=== PATIENT | male | born 1990 | race African-American/Black ===

== ENCOUNTER 2018-09-06 11:31 | Emergency (ER) | payer MEDICAID, OTHER ==
[~2018-09-06] VITALS: Ht 182.9 cm; Wt 100.0 kg
[2018-09-06] MEDS ORDERED: SODIUM CHLORIDE 0.9% 1,000 ML IV ONE (12:22)
[2018-09-06] MEDS ORDERED: LEVETIRACETAM 1000MG/100ML 100 ML IV ONE (12:30)
[2018-09-06] MEDS ORDERED: NALOXONE HCL 1 MG/ML 2ML VIAL IV ONE (13:45)
[2018-09-06 15:33] LABS: BASOPHILS % 0.4 % (0.0-2.0); EOSINOPHILS % 1.3 % (0.0-5.0); HEMATOCRIT. 48.9 % (42.0-52.0); HEMOGLOBIN. 15.9 g/dL (14.0-18.0); LYMPHOCYTES % 37.2 % (20.0-50.0); MEAN CORPUSCULAR HEMOGLOBIN 27.7 pg (28.0-32.0); MEAN CORPUSCULAR VOLUME 85.1 fL (80.0-94.0); MEAN PLATELET VOLUME 7.4 fl (7.4-10.4); MONOCYTES % 13.1 % (2.0-8.0); PLATELET 347 x1000/uL (130-400); RED BLOOD CELL COUNT 5.75 mill/uL (4.7-6.1); RED CELL DISTRIBUTION WIDTH 15.2 % (11.6-14.6)
[2018-09-06 15:37] LABS: CHLORIDE 99 mEq/L (98-107); PARTIAL THROMBOPLASTIN TIME 28.9 sec (23.4-31.0); PROTHROMBIN TIME 10.5 sec (9.1-11.1)
[2018-09-06 15:44] LABS: ETHANOL BLOOD < 10 mg/dL
[2018-09-06 15:50] LABS: CREATINE KINASE 108 IU/L (39-308)
[2018-09-06] MEDS ORDERED: PHENYTOIN SODIUM EXTENDED 100MG CAPSULE PO ONE (17:15)
[2018-09-06 17:23] LABS: CLARITY URINE CLEAR (CLEAR); COLOR URINE YELLOW (YELLOW); KETONES URINE NEGATIVE (NEGATIVE); LEUKOCYTE ESTERASE URINE NEGATIVE (NEGATIVE); NITRITE URINE NEGATIVE (NEGATIVE); OCCULT BLOOD URINE NEGATIVE (NEGATIVE); PROTEIN URINE NEGATIVE (NEGATIVE); SPECIFIC GRAVITY URINE 1.011 (1.005-1.030); UROBILINOGEN URINE 0.2 E.U./dL (0.2-1.0)
[2018-09-06 17:40] LABS: *AMPHETAMINES SCREEN URINE NEGATIVE (NEGATIVE); *BARBITURATES SCREEN URINE NEGATIVE (NEGATIVE); *BENZODIAZEPINES SCREEN URINE NEGATIVE (NEGATIVE); *COCAINE SCREEN URINE NEGATIVE (NEGATIVE)
[2018-09-06 17:41] LABS: CANNABINOID URINE SCREEN NEGATIVE (NEGATIVE); METHADONE URINE SCREEN NEGATIVE (NEGATIVE); OPIATES URINE SCREEN NEGATIVE (NEGATIVE); PHENCYCLIDINE URINE SCREEN NEGATIVE (NEGATIVE)
[2018-09-06 18:39] VITALS: BP 132/75
== END 2018-09-06 18:41 | disposition home or self-care (01) ==
LOC: ER 13:37
DX: R51 Headache (principal); R89.2 Abnormal level of other drugs, medicaments and biological substances in specimens from other organs, systems and tissues; Z91.19 Patient's noncompliance with other medical treatment and regimen; F15.10 Other stimulant abuse, uncomplicated; F11.10 Opioid abuse, uncomplicated
CPT/HCPCS: 36415; 70450; 71045; 80053; 80185; 80305; 81003; 82550; 83735; 83880; 84484; 85025; 85610; 85730; 96365; 96375; 99285; G0482; J1953; J2310; J7030; Z7610

== ENCOUNTER 2018-09-14 14:02 | Emergency (ER) | payer MEDICAID ==
[~2018-09-14] VITALS: Ht 190.5 cm; Wt 120.0 kg
[2018-09-14] MEDS ORDERED: SODIUM CHLORIDE 0.9% 1,000 ML IV ONE (14:14)
[2018-09-14] MEDS ORDERED: LEVETIRACETAM 1000MG/100ML 100 ML IV ONE (14:15)
[2018-09-14 15:15] LABS: BASOPHILS % 0.7 % (0.0-2.0); EOSINOPHILS % 1.2 % (0.0-5.0); HEMATOCRIT. 41.1 % (42.0-52.0); HEMOGLOBIN. 13.7 g/dL (14.0-18.0); LYMPHOCYTES % 31.4 % (20.0-50.0); MEAN CORPUSCULAR HEMOGLOBIN 27.8 pg (28.0-32.0); MEAN CORPUSCULAR VOLUME 83.4 fL (80.0-94.0); MEAN PLATELET VOLUME 7.2 fl (7.4-10.4); MONOCYTES % 9.2 % (2.0-8.0); NEUTROPHILS % 57.5 % (40.0-76.0); PLATELET 325 x1000/uL (130-400); RED BLOOD CELL COUNT 4.93 mill/uL (4.7-6.1); RED CELL DISTRIBUTION WIDTH 14.8 % (11.6-14.6)
[2018-09-14 16:48] LABS: CHLORIDE 103 mEq/L (98-107)
[2018-09-14 16:49] LABS: ETHANOL BLOOD < 10 mg/dL
[2018-09-14] MEDS ORDERED: PHENYTOIN SODIUM EXTENDED 100MG CAPSULE PO ONE (18:00)
[2018-09-14 18:45] VITALS: BP 138/90
[2018-09-15] MEDS ORDERED: LEVE1000 MT (17:02)
== END 2018-09-14 18:52 | disposition home or self-care (01) ==
LOC: ER 14:12
DX: G40.909 Epilepsy, unspecified, not intractable, without status epilepticus (principal); Z91.19 Patient's noncompliance with other medical treatment and regimen
CPT/HCPCS: 36415; 70450; 80048; 80185; 82962; 85025; 96365; 99285; G0482; J1953; J7030; Z7610

== ENCOUNTER 2018-09-15 11:32 | Inpatient (IN) | payer MEDICAID ==
[~2018-09-15] VITALS: Ht 185.4 cm; Wt 92.7 kg
[2018-09-15] MEDS ORDERED: SODIUM CHLORIDE 0.9% 1,000 ML IV ONE (12:02)
[2018-09-15] MEDS ORDERED: LEVETIRACETAM 1000MG/100ML 100 ML IV ONE (12:15)
[2018-09-15 12:59] LABS: BASOPHILS % 0.6 % (0.0-2.0); HEMATOCRIT. 41.6 % (42.0-52.0); HEMOGLOBIN. 13.8 g/dL (14.0-18.0); MEAN CORPUSCULAR HEMOGLOBIN 27.9 pg (28.0-32.0); MEAN CORPUSCULAR VOLUME 84.1 fL (80.0-94.0); MEAN PLATELET VOLUME 7.1 fl (7.4-10.4); MONOCYTES % 8.9 % (2.0-8.0); NEUTROPHILS % 60.5 % (40.0-76.0); PLATELET 336 x1000/uL (130-400); RED BLOOD CELL COUNT 4.95 mill/uL (4.7-6.1); RED CELL DISTRIBUTION WIDTH 14.6 % (11.6-14.6)
[2018-09-15] MEDS ORDERED: DIVALPROEX SODIUM 250MG ER TABLET PO ONE (13:15)
[2018-09-15 13:16] LABS: CHLORIDE 104 mEq/L (98-107)
[2018-09-15 13:17] LABS: CREATINE KINASE 177 IU/L (39-308); ETHANOL BLOOD < 10 mg/dL
[2018-09-15 13:45] LABS: VALPROIC ACID < 3.0 ug/mL (50-100)
[2018-09-15 14:36] VITALS: BP 130/73
[2018-09-15 15:03] VITALS: BP 124/76
[2018-09-15 16:00] VITALS: BP 127/74
[2018-09-15] MEDS ORDERED: LEVE1000 MT (17:02)
[2018-09-15 17:50] VITALS: BP 130/73
[2018-09-15] MEDS ORDERED: ONDANSETRON HCL 4MG/2ML INJ IV PRN (19:30)
[2018-09-15] MEDS ORDERED: MAGNESIUM/ALUMINUM HYDROXIDE/SIMETHICONE 30ML UDC PO PRN (19:30)
[2018-09-15] MEDS ORDERED: LORAZEPAM 2MG/ML CPJ IV PRN (19:30)
[2018-09-15] MEDS ORDERED: INFLUENZA VIRUS VACCINE(AFLURIA) 0.5ML SYR IM ONE (19:30)
[2018-09-15 19:56] VITALS: BP 117/72
[2018-09-15] MEDS: LEVETIRACETAM 1,000 MG in SODIUM CHLORIDE 0.9% 100 ML IV SCH (20:59)
[2018-09-15] MEDS: SODIUM CHLORIDE 0.9% INJ 3ML FLUSH IVF SCH (20:59)
[2018-09-15] MEDS: ACETAMINOPHEN 325MG TABLET PO PRN (22:09)
[2018-09-16] VITALS: BP 139/62
[2018-09-16 04:00] VITALS: BP 120/76
[2018-09-16] MEDS: SODIUM CHLORIDE 0.9% INJ 3ML FLUSH IVF SCH ×2 (05:12→13:15)
[2018-09-16] MEDS: ACETAMINOPHEN 325MG TABLET PO PRN ×2 (06:24→12:44)
[2018-09-16 08:00] VITALS: BP 122/69
[2018-09-16] MEDS: LEVETIRACETAM 1,000 MG in SODIUM CHLORIDE 0.9% 100 ML IV SCH (09:32)
[2018-09-16 12:00] VITALS: BP 110/63
[2018-09-16 15:58] VITALS: BP 117/74
[2018-09-16 18:07] VITALS: BP 117/74
== END 2018-09-16 20:06 | disposition home or self-care (01) | DRG 53 ==
LOC: ER 11:32 → EDBEDREQTM 13:05 → EDBEDREQ 13:05 → ENRESERV 13:09 → 7WST 13:12
PROVIDERS: ADMIT Internal Medicine; ATTEND Internal Medicine
DX: G40.409 Other generalized epilepsy and epileptic syndromes, not intractable, without status epilepticus (principal); J45.909 Unspecified asthma, uncomplicated; Z91.19 Patient's noncompliance with other medical treatment and regimen; Z87.891 Personal history of nicotine dependence
CPT/HCPCS: 36415; 80048; 80165; 80185; 82550; 83605; 83735; 90686; 96361; 96365; 99291; G0482; J1953; J7030; J7050

== ENCOUNTER 2018-09-27 12:02 | Emergency (ER) | payer MEDICAID, OTHER ==
[~2018-09-27] VITALS: Ht 175.3 cm; Wt 85.0 kg
[~2018-09-27 12:02] MED LIST: LEVE1000 MT
[2018-09-27] MEDS ORDERED: SODIUM CHLORIDE 0.9% 1,000 ML IV ONE (12:30)
[2018-09-27 13:20] LABS: CLARITY URINE CLEAR (CLEAR); COLOR URINE YELLOW (YELLOW); KETONES URINE NEGATIVE (NEGATIVE); LEUKOCYTE ESTERASE URINE NEGATIVE (NEGATIVE); NITRITE URINE NEGATIVE (NEGATIVE); OCCULT BLOOD URINE 1+ (NEGATIVE); PROTEIN URINE 1+ (NEGATIVE); SPECIFIC GRAVITY URINE 1.038 (1.005-1.030)
[2018-09-27 13:28] LABS: BASOPHILS % 0.5 % (0.0-2.0); EOSINOPHILS % 0.9 % (0.0-5.0); HEMATOCRIT. 42.9 % (42.0-52.0); HEMOGLOBIN. 14.1 g/dL (14.0-18.0); LYMPHOCYTES % 28.8 % (20.0-50.0); MEAN CORPUSCULAR HEMOGLOBIN 27.9 pg (28.0-32.0); MEAN CORPUSCULAR VOLUME 84.9 fL (80.0-94.0); MONOCYTES % 8.9 % (2.0-8.0); NEUTROPHILS % 60.9 % (40.0-76.0); PLATELET 279 x1000/uL (130-400); RED BLOOD CELL COUNT 5.05 mill/uL (4.7-6.1); RED CELL DISTRIBUTION WIDTH 15.2 % (11.6-14.6)
[2018-09-27 13:34] LABS: CHLORIDE 104 mEq/L (98-107); ETHANOL BLOOD < 10 mg/dL
[2018-09-27] MEDS ORDERED: LEVETIRACETAM 500MG TABLET PO ONE (13:45)
[2018-09-27] MEDS ORDERED: LEVETIRACETAM 1000MG/100ML 100 ML IV NR (13:45)
[2018-09-27] MEDS ORDERED: OXCARBAZEPINE 300MG TABLET PO STA (13:47)
[2018-09-27 14:06] LABS: *AMPHETAMINES SCREEN URINE NEGATIVE (NEGATIVE); *BENZODIAZEPINES SCREEN URINE PRESUMTIVE POSITIVE (NEGATIVE); *COCAINE SCREEN URINE NEGATIVE (NEGATIVE); CANNABINOID URINE SCREEN NEGATIVE (NEGATIVE); PHENCYCLIDINE URINE SCREEN NEGATIVE (NEGATIVE)
[2018-09-27 14:07] LABS: METHADONE URINE SCREEN NEGATIVE (NEGATIVE); OPIATES URINE SCREEN NEGATIVE (NEGATIVE)
[2018-09-27 14:15] LABS: *BARBITURATES SCREEN URINE NEGATIVE (NEGATIVE)
[2018-09-27 14:20] VITALS: BP 124/62
== END 2018-09-27 15:21 | disposition home or self-care (01) ==
LOC: ER 12:02
DX: G40.802 Other epilepsy, not intractable, without status epilepticus (principal); R45.1 Restlessness and agitation; Z91.14 Patient's other noncompliance with medication regimen; Z79.899 Other long term (current) drug therapy
CPT/HCPCS: 36415; 80053; 80305; 81003; 85025; 99285; G0482; J7030; A4315

== ENCOUNTER 2018-10-05 10:30 | Emergency (ER) | payer OTHER, MEDICAID ==
[~2018-10-05] VITALS: Ht 180.3 cm; Wt 90.0 kg
[2018-10-05 10:55] VITALS: BP 118/77
[2018-10-05] MEDS ORDERED: OXCARBAZEPINE 300MG TABLET PO ONE (11:30)
[2018-10-05] MEDS ORDERED: ACETAMINOPHEN 325MG TABLET PO ONE (11:30)
[2018-10-05] MEDS ORDERED: LEVETIRACETAM 500MG TABLET PO ONE (11:30)
== END 2018-10-05 14:18 | disposition home or self-care (01) ==
LOC: ER 10:30
DX: G40.909 Epilepsy, unspecified, not intractable, without status epilepticus (principal); Z71.89 Other specified counseling; S60.221A Contusion of right hand, initial encounter; X79.XXXA Intentional self-harm by blunt object, initial encounter; Y93.89 Activity, other specified; Y92.240 Courthouse as the place of occurrence of the external cause
CPT/HCPCS: 73130; 99284